=== PATIENT | male | born 1945 | race Caucasian/White ===

== ENCOUNTER 2017-05-02 14:47 | Inpatient (IN) | payer MEDICARE ==
[~2017-05-02] VITALS: Ht 182.9 cm; Wt 127.0 kg
[2017-05-02] MEDS ORDERED: METF500T4 PO (16:19)
[2017-05-02] MEDS ORDERED: ASPI-496 PO (16:20)
[2017-05-02] MEDS ORDERED: CHOL2000 PO (16:20)
[2017-05-02] MEDS ORDERED: ATOR10TA9 PO (16:21)
[2017-05-02] MEDS ORDERED: HYDR25TA6 PO (16:21)
[2017-05-02] MEDS ORDERED: AMLO5TAB2 PO (16:21)
[2017-05-02] MEDS ORDERED: TERA2CAP3 PO (16:22)
[2017-05-02] MEDS ORDERED: TIOT18CA INH (16:23)
[2017-05-02] MEDS ORDERED: BUDE10.2 INH (16:23)
[2017-05-02] MEDS ORDERED: IPRA30SP NAS (16:24)
[2017-05-02] MEDS ORDERED: ALBU6.7H INH (16:24)
[2017-05-02] MEDS ORDERED: BISACODYL 10 MG SUPP PR PRN (17:30)
[2017-05-02] MEDS ORDERED: LABETALOL 5MG/ML, 20ML IVPush PRN (17:30)
[2017-05-02] MEDS ORDERED: ACETAMINOPHEN 325 MG TABLET PO PRN (17:30)
[2017-05-02] MEDS ORDERED: ALBUTEROL HFA 90 MCG/SPRAY INH PRN (17:30)
[2017-05-02] MEDS ORDERED: DOCUSATE 100 MG CAPSULE PO PRN (17:30)
[2017-05-02] MEDS ORDERED: ONDANSETRON 2MG/ML, 2ML IVPush PRN (17:30)
[2017-05-02] MEDS ORDERED: POLYETHYLENE GLYCOL 17 GM PACKET PO PRN (17:30)
[2017-05-02] MEDS ORDERED: ENOXAPARIN 40 MG/0.4 ML SQ SCH (21:00)
[2017-05-02] MEDS ORDERED: TERAZOSIN 2MG CAPSULE PO SCH (21:00)
[2017-05-02] MEDS ORDERED: ATORVASTATIN 10 MG TABLET PO SCH (21:00)
[2017-05-02] MEDS ORDERED: IPRATROPIUM NASAL 0.03%, 30ML NAS SCH (21:00)
[2017-05-02] MEDS: metFORMIN 500 MG TABLET PO SCH (21:27)
[2017-05-02] MEDS: SODIUM CHLORIDE FLUSH 10ML SYR IVF SCH (21:28)
[2017-05-02 23:23] LABS: IS PT STATUS REG ER OR PRE ER? NO
[2017-05-03] MEDS: IPRATROPIUM 0.5 MG/2.5 ML INHA NPPB SCH ×2 (00:09→03:00)
[2017-05-03 00:59] VITALS: BP 129/80
[2017-05-03 06:29] LABS: IS PT STATUS REG ER OR PRE ER? NO
[2017-05-03 06:40] VITALS: BP 128/80
[2017-05-03] MEDS ORDERED: ASPIRIN 81 MG TABLET EC PO SCH (09:00)
[2017-05-03] MEDS ORDERED: FLUTICASONE/VILANTEROL 200-25MCG/INH INH SCH (09:00)
[2017-05-03] MEDS ORDERED: AMLODIPINE 5 MG TABLET PO SCH (09:00)
[2017-05-03] MEDS ORDERED: HYDROCHLOROTHIAZIDE 25 MG TABLET PO SCH (09:00)
[2017-05-03] MEDS ORDERED: CHOLECALCIFEROL 1,000 UNIT TABLET PO SCH (09:00)
[2017-05-03] MEDS: metFORMIN 500 MG TABLET PO SCH (09:17)
[2017-05-03] MEDS: SODIUM CHLORIDE FLUSH 10ML SYR IVF SCH (09:18)
[2017-05-03 12:20] VITALS: BP 126/80
[2017-05-03] MEDS ORDERED: ASPI-621 PO (14:54)
[2017-05-04] MEDS ORDERED: ASPIRIN 81 MG TABLET EC PO SCH (09:00)
== END 2017-05-03 17:41 | disposition home or self-care (01) | DRG 65 ==
LOC: ED 16:25 → EDIP 16:26 → ED 17:07 → 4WST 20:32
PROVIDERS: ADMIT Hospitalist; ATTEND Hospitalist
DX: I63.9 Cerebral infarction, unspecified (principal); G46.0 Middle cerebral artery syndrome; E11.65 Type 2 diabetes mellitus with hyperglycemia; I11.9 Hypertensive heart disease without heart failure; G81.94 Hemiplegia, unspecified affecting left nondominant side; J44.9 Chronic obstructive pulmonary disease, unspecified; G47.33 Obstructive sleep apnea (adult) (pediatric); H93.12 Tinnitus, left ear; Z66 Do not resuscitate; Z79.84 Long term (current) use of oral hypoglycemic drugs; Z82.49 Family history of ischemic heart disease and other diseases of the circulatory system; Z86.73 Personal history of transient ischemic attack (TIA), and cerebral infarction without residual deficits; Z87.891 Personal history of nicotine dependence; Z90.89 Acquired absence of other organs; Z80.9 Family history of malignant neoplasm, unspecified
CPT/HCPCS: 36415; 70551; 80061; 84443; 84484; 93005; 93306; 93880; 99285; J1650; 92523-GN